=== PATIENT | female | born 1965 | race Caucasian/White ===

== ENCOUNTER 2016-12-13 16:32 | Emergency (ER) | payer MEDICAID, OTHER ==
[~2016-12-13] VITALS: Ht 213.4 cm; Wt 92.5 kg
[~2016-12-13 16:32] MED LIST: IBUP600T26 PO; TRAM50TA PO; ZOVI200C24 PO
[2016-12-13 17:03] VITALS: BP 134/84; PULSE 74; RESP 18; TEMP 97.8; O2SAT 97
--- NOTE | 2016-12-13 17:28 | PD ---
HPI Chief Complaint: Musculoskeletal Complaint Time Seen by Provider: 17:22 Travel History International Travel<30 days: No Contact w/Intl Traveler<30days: No Traveled to known affect area: No History of Present Illness HPI 51-year-old female coming in with right heel pain for the past 3 weeks. Patient states she had to get into her garage through the window she locked her house ornelas in the home. She jumped down from the window onto the floor landing on a wrench injuring her right heel. Patient states she's had progressively worsening right heel pain since that time. There is no open wound or sign of infection. Patient has been using ice, stretching it, and wearing shoes but pain is still worrisome and bothersome. Currently the pain as a 6/10. At worst it as a 9/10. She has no history of previous injury to this area. She is allergic to codeine. [facility] Past Medical History Medical History: Denies Significant Hx Diminished Hearing: No Migraines: Yes Influenza Vaccination: No ?: Not Past Surgical History Surgical History: No Previous Surgery Section: Yes Social History Alcohol Use: Yes (social) Tobacco Use: No Substance Use: No Allergies-Medications (Allergen,Severity, Reaction): Coded Allergies: Codeine (Verified Adverse Reaction, Intermediate, upsed stomach , 12/13/16) Reported Meds & Prescriptions Reported Meds & Active Scripts Active Prednisone (48) 10 mg tab Dose Pack (Prednisone) 10 Mg Dspk 10 Mg PO DIRECTED Physical Exam Narrative GENERAL: Patient appears in no acute distress. She is limping when she walks. SKIN: Warm and dry. No pallor. Normal turgor. No obvious signs of trauma to the heel or foot. HEAD: Atraumatic. Normocephalic. EYES: Pupils equal and round. No scleral icterus. No injection or drainage. ENT: No nasal bleeding or discharge. Mucous membranes pink and moist. NECK: Trachea midline. No JVD. CARDIOVASCULAR: Regular rate and rhythm. RESPIRATORY: No accessory muscle use. Clear to auscultation. Breath sounds equal bilaterally. MUSCULOSKELETAL: Extremities without clubbing, cyanosis, or edema. No obvious deformities. Patient is tenderness to palpation at the base of the distal Achilles and medial heel/arch consistent with plantar fasciitis. NEUROLOGICAL: Awake and alert. No obvious cranial nerve deficits. Motor grossly within normal limits. Five out of 5 muscle strength in the arms and legs. Normal speech. PSYCHIATRIC: Appropriate mood and affect; insight and judgment normal. Data Data Last Documented VS Vital Signs Date Time Temp Pulse Resp B/P Pulse Ox O2 Delivery O2 Flow Rate FiO2 12/13/16 17:03 97.8 74 18 134/84 97 Orders Foot, Heel Only ([id number]) (12/13/16 17:28) Ice/Cold Pack (12/13/16 17:28) Splint Or Brace Apply/Monitor (12/13/16 18:46) [facility] Medical Decision Making Medical Screen Exam Complete: Yes Emergency Medical Condition: Yes Differential Diagnosis Heel contusion. Possible fracture. Plantar fasciitis. Narrative Course Patient is medically stable at time of exam. X-ray of the right heel is ordered. X-rays negative for acute findings per radiologist. Patiently treated with prednisone Dosepak as directed. Patient take Tylenol as well as needed. Patient is use ice, stretching, and appropriate shoes as discussed. Patient should follow with Dr. Hernandez, or some other superintendent service if symptoms persist or worsen. Diagnosis Primary Impression: Plantar fasciitis of right foot Referrals: Lexi Gonzales DPJimbo as needed Patient Instructions: General Instructions, Plantar Fasciitis (ED), Plantar Fasciitis Exercises (GEN) Additional Instructions: X-rays negative for acute findings per radiologist. Patiently treated with prednisone Dosepak as directed. Patient take Tylenol as well as needed. Patient is use ice, stretching, and appropriate shoes as discussed. Patient should follow with Dr. Hernandez, or some other superintendent service if symptoms persist or worsen. Scripts Prednisone (48) 10 mg tab Dose Pack 10 Mg Dspk10 Mg PO DIRECTED #1 DSPK Prov:Chetan Dumont MD 12/13/16 Disposition: 01 DISCHARGE HOME Condition: Stable Hira Borden Dec 13, 2016 17:28
--- NOTE | 2016-12-13 18:25 | RADHPO ---
EXAM DATE/TIME: 12/13/2016 18:14 [facility] COMPARISON: No previous studies available for comparison. INDICATIONS : Right heel pain. Patient states she jumped out of a window and landed on a pile of tools. MEDICAL HISTORY : None. SURGICAL HISTORY : None. ENCOUNTER: Initial ACUITY: 2 weeks PAIN SCORE: 8/10 LOCATION: Right heel. FINDINGS: Two view examination of the right heel demonstrates the trabecula to be intact with no evidence of fr acture. There is a normal calcaneal angle. The soft tissues are of normal thickness. Small plantar calcaneal spur. CONCLUSION: No acute fracture. Dickson Franklin MD on December 13, 2016 at 18:22 Board Certified Radiologist. This report was verified electronically.
[2016-12-13] MEDS ORDERED: PRED10PA2 PO (18:38)
== END 2016-12-13 19:01 | disposition home or self-care (01) ==
LOC: PHEFT 16:32
DX: M72.2 Plantar fascial fibromatosis (principal); W13.4XXA Fall from, out of or through window, initial encounter; Y93.89 Activity, other specified; Y92.008 Other place in unspecified non-institutional (private) residence as the place of occurrence of the external cause
CPT/HCPCS: 73650; 99283; L3260